=== PATIENT | male | born 1965 | race Caucasian/White ===

== ENCOUNTER 2018-12-16 10:17 | Emergency (ER) | payer BC ==
--- OUTSIDE RECORDS SUMMARY | 2018-12-16 10:20 | XMS REPORT | Clinical Summary ---
:1965 Author Organization [facility] Address [address] [place] [address] Care Team Providers Name Role Phone Abhishek Louis MD Primary Care Provider Allergies No Known Allergies Medications Medication Sig Dispensed Refills Start Date End Date Status lisinopril Take 10 mg by 0 Active (PRINIVIL,ZESTRIL) 10 MG mouth daily. tabletIndications: hypertension topiramate (TOPAMAX) 15 Take 15 mg by 0 Active MG capsule mouth daily. amLODIPine (NORVASC) 5 Take 5 mg by 0 Active MG tabletIndications: mouth daily. hypertension Active Problems Problem Noted Date Blurry vision 10/06/2016 Hypercholesterolemia 07/22/2015 Transient cerebral ischemia 07/21/2015 Overview: UPDATED BY ICD10 SNOMED/IMO UPDATES Hypertension 07/21/2015 Tobacco use 07/21/2015 Recurrent otitis media 07/21/2015 Social History Tobacco Use Types Packs/Day Years Used Date Never Smoker Alcohol Use Drinks/Week oz/Week Comments Yes Sex Assigned at Date Recorded Not on file Job Start Date Occupation Industry Not on file Not on file Not on file Travel History Travel Start Travel End No recent travel history available. Last Filed Vital Signs Not on file Plan of Treatment Not on file Results Not on fileafter 12/15/2017 Insurance Payer Benefit Plan / Subscriber ID Type Phone Address Group BLUE CROSS/BLUE BCBS OS xxxxxxxxxxxx PPO [phone] [address] [place] [place] [address] (Home) [address] [place] [place] [address] Advance Directives For more information, please contact:[address] [place], [place] [phone] Code Status Date Activated Date Inactivated Comments Full Code 10/06/2016 3:10 AM 10/07/2016 5:14 PM This code status was determined by: Patient Full Code 07/21/2015 5:25 PM 07/22/2015 5:56 PM This code status was determined by: Patient
--- OUTSIDE RECORDS SUMMARY | 2018-12-16 10:20 | XMS REPORT ---
:1965 [facility] Address [address] Ann [address] [place] [id number] Care Team Providers Name Role Phone MELECIO CURTIS Unavailable Unavailable Problems This patient has no known problems. Allergies, Adverse Reactions, Alerts This patient has no known allergies or adverse reactions. Medications This patient has no known medications. Results Test Description Test Time Test Comments Text Results Atomic Results Result Comments BASIC METABOLIC PANEL 2016-10-06 07:10:00 Test Item Value Reference Range Comments SODIUM (BEAKER) (test 135 meq/L 136-145 dwqv=791) POTASSIUM (BEAKER) (test 4.2 meq/L 3.5-5.1 dieb=656) CHLORIDE (BEAKER) (test 106 meq/L 98-107 irlr=241) CO2 (BEAKER) (test yuyf=777) 18 meq/L 22-29 BLOOD UREA NITROGEN (BEAKER) 17 mg/dL 7-21 (test nmew=044) CREATININE (BEAKER) (test 0.82 mg/dL 0.57-1.25 zddc=193) GLUCOSE RANDOM (BEAKER) 99 mg/dL 70-105 (test jjvh=664) CALCIUM (BEAKER) (test 8.4 mg/dL 8.4-10.2 lpbf=391) EGFR (BEAKER) (test 98 mL/min/1.73 sq m ESTIMATED GFR IS NOT sqox=5027) ACCURATE CREATININE CLEARANCE IN PREDICTING GLOMERULAR FILTRATION RATE. ESTIMATED GFR IS NOT APPLICABLE FOR DIALYSIS PATIENTS. FastingLIPID [id number] 07:06:00 Test Item Value Reference Range Comments TRIGLYCERIDES (BEAKER) (test kwar=397) 208 mg/dL CHOLESTEROL (BEAKER) (test uotn=193) 197 mg/dL HDL CHOLESTEROL (BEAKER) (test ezdp=551) 40 mg/dL LDL CHOLESTEROL CALCULATED (BEAKER) (test 115 mg/dL yqjj=919) Triglyceride Reference Range: Low Risk <150 Borderline 150- 199 High Risk 200-499 Very High Risk >=500Cholesterol Reference Range: Low Risk <200 Borderline 200-239 High Risk > 240HDL Cholesterol Reference Range: Low Risk >=60 High Risk <40LDL Cholesterol Reference Range: Optimal <100 Near Optimal 100-129 Borderline 130-159 High 160-189 Very High >=190 FastingCBC W/PLT COUNT & AUTO [id number] 05:36:00 Test Item Value Reference Range Comments WHITE BLOOD CELL COUNT (BEAKER) (test ytof=746) 5.9 K/ L 4.0-10.0 RED BLOOD CELL COUNT (BEAKER) (test ghbd=782) 4.42 M/ L 4.20-5.80 HEMOGLOBIN (BEAKER) (test wkdi=817) 14.6 GM/DL 13.0-16.8 HEMATOCRIT (BEAKER) (test odeq=108) 41.9 % 40.0-50.0 MEAN CORPUSCULAR VOLUME (BEAKER) (test zshq=934) 94.7 fL 82.0-98.0 MEAN CORPUSCULAR HEMOGLOBIN (BEAKER) (test 33.0 pg 27.0-33.0 ciog=358) MEAN CORPUSCULAR HEMOGLOBIN CONC (BEAKER) (test 34.9 GM/DL 32.0-36.0 yfhh=618) RED CELL DISTRIBUTION WIDTH (BEAKER) (test 11.4 % 10.3-14.2 coma=577) PLATELET COUNT (BEAKER) (test wrni=548) 231 K/CU MM 150-430 MEAN PLATELET VOLUME (BEAKER) (test kuvg=651) 6.9 fL 6.5-10.5 NUCLEATED RED BLOOD CELLS (BEAKER) (test 0 /100 WBC 0-0 uhaf=431) NEUTROPHILS RELATIVE PERCENT (BEAKER) (test 40 % dyfc=420) LYMPHOCYTES RELATIVE PERCENT (BEAKER) (test 41 % yznk=122) MONOCYTES RELATIVE PERCENT (BEAKER) (test 12 % gcny=577) EOSINOPHILS RELATIVE PERCENT (BEAKER) (test 7 % timx=089) BASOPHILS RELATIVE PERCENT (BEAKER) (test 1 % ogdg=154) NEUTROPHILS ABSOLUTE COUNT (BEAKER) (test 2.32 K/ L 1.80-8.00 itup=637) LYMPHOCYTES ABSOLUTE COUNT (BEAKER) (test 2.41 K/ L 1.48-4.50 jmyh=135) MONOCYTES ABSOLUTE COUNT (BEAKER) (test 0.72 K/ L 0.00-1.30 oqfp=888) EOSINOPHILS ABSOLUTE COUNT (BEAKER) (test 0.39 K/ L 0.00-0.50 mztq=423) BASOPHILS ABSOLUTE COUNT (BEAKER) (test 0.03 K/ L 0.00-0.20 nhax=143) 0.00
[2018-12-16 10:39] LABS: Absolute Lymphocytes (CBC) 2.1 K/uL (0.7-4.9); Basophils % 0.9 % (0-1.3); Eosinophils % 2.4 % (0-4.4); Hematocrit 52.6 % (39.6-49.0); MPV 8.3 fL (7.6-11.3); Monocytes % 10.4 % (3.3-12.3); RBC Red Blood Cell Count 5.53 M/uL (4.33-5.43)
[2018-12-16 10:40] LABS: Protime INR 0.95
[2018-12-16] MEDS ORDERED: NA CHLORIDE 0.9% 1,000 ML ONE (10:40)
--- NOTE | 2018-12-16 10:46 | RAD REPORT ---
EXAM DESCRIPTION: CT - Ct Stroke Brain Wo Cont - 12/16/2018 10:37 am CLINICAL HISTORY: Numbness COMPARISON: September 08, 2018 TECHNIQUE: Computed axial tomography of the head was obtained. All CT scans are performed using dose optimization technique as appropriate and may include automated exposure control or mA/KV adjustment according to patient size. FINDINGS: An intracranial bleed is not seen . The ventricles are normal in caliber. No extra-axial fluid collection is noted. Equivocal small low-density area right internal capsule Fluid within the sinuses/ mastoids is not seen. Chronic opacification right mastoids IMPRESSION: Equivocal small low-density right internal capsule questionable for an acute lacunar inf arct. MRI recommended Dr Merchant of the emergency room was notified at 10:37 a.m. December 16, 2018
[2018-12-16] MEDS ORDERED: FOLIC ACID 5 MG/ML VIAL ONE (10:54)
[2018-12-16 10:59] LABS: ALT/SGPT 28 U/L (12-78); AST/SGOT 18 U/L (15-37); Albumin 4.1 g/dL (3.4-5.0); Alkaline Phosphatase 60 U/L (45-117); BUN Blood Urea Nitrogen 13 mg/dL (7-18); Bicarbonate 28 mmol/L (21-32); Bilirubin Direct 0.2 mg/dL (0-0.2); Bilirubin Total 0.8 mg/dL (0.2-1.0); C-Reactive Protein < 2.90 mg/L (<3.00); Glucose Level 108 mg/dL (74-106); Magnesium 2.4 mg/dL (1.8-2.4); NT PRO-BNP 21 pg/mL (<125); Potassium 4.6 mmol/L (3.5-5.1); Protein, Total 7.5 g/dL (6.4-8.2); Sodium Level 139 mmol/L (136-145); Troponin (Emerg Dept Use Only) < 0.02 ng/mL (0.0-0.045)
[2018-12-16] MEDS ORDERED: ASPIRIN 81 MG CHEWABLE TABLET ONE (11:15)
[2018-12-16] MEDS ORDERED: LORazepam 2 MG/ML VIAL ONE (11:16)
--- NOTE | 2018-12-16 11:18 | RAD REPORT ---
EXAM DESCRIPTION: RAD - Chest Single View - 12/16/2018 11:01 am CLINICAL HISTORY: Cough, shortness of breath COMPARISON: September 2016 TECHNIQUE: AP portable chest image was obtained 1056 hours . FINDINGS: Lungs are clear. Heart and vasculature are normal. No measurable pleural effusion and no p neumothorax. No acute bony abnormality seen. No acute aortic findings suspected. IMPRESSION: No acute cardiopulmonary process. No significant change from comparison.
--- NOTE | 2018-12-16 12:09 | RAD REPORT ---
EXAM DESCRIPTION: US - CP - 12/16/2018 11:59 am CLINICAL HISTORY: Dizziness, syncope COMPARISON: August 2011 TECHNIQUE: Real-time sonographic evaluation of both carotid systems was performed. Avila scale and Do ppler interrogation were performed with waveform tracing bilaterally. FINDINGS: Normal high resistance waveforms are noted in both external carotid arteries. The common c arotid arteries and internal carotid arteries show normal low resistance waveforms. No significant plaquing changes in the bilateral common carotid or internal carotid arteries. No diss ection is seen. Peak systolic and end diastolic velocity values and the ICA/CCA ratios are in the non -hemodynamically significant range. Antegrade flow seen in both vertebral arteries. Velocity values and ratios were recorded and are retained in the patient's imaging records. IMPRESSION: No significant atherosclerotic changes noted. No evidence of a hemodynamically significant stenosis.
--- NOTE | 2018-12-16 12:29 | EKG ---
Test Date: 2018-12-16 Test Time: 10:26:24 Textile Designer: ANIL MEASUREMENT RESULTS: Intervals: Rate: 71 IN: 130 QRSD: 96 QT: 364 QTc: 395 [place]: P: 56 IN: 130 QRS: 58 T: 44 INTERPRETIVE STATEMENTS: Normal sinus rhythm Normal ECG Compared to ECG 08/24/2017 19:39:59 Sinus arrhythmia no longer present Electronically Signed On 12-16-18 12:28:26 CDT by Donte Vargas
--- NOTE | 2018-12-16 12:37 | RAD REPORT ---
EXAM DESCRIPTION: MRI - Brain Wo Cont - 12/16/2018 12:19 pm CLINICAL HISTORY: Numbness COMPARISON: Head CT December 16, 2018 TECHNIQUE: Axial, sagittal, and coronal magnetic images of the brain were obtained. Contrast was not requested FINDINGS: No significant abnormal signal is present within the brain. Diffusion-weighted/ADC mapping does not reveal evidence of acute infarction. The ventricles are normal caliber. An extra-axial fluid collection is not present Chronic opacification right mastoids IMPRESSION: No acute intracranial abnormality. Exam was discussed with Dr. Dietz in the emergency ro om 12:25 p.m. December 16, 2018
--- NOTE | 2018-12-16 12:50 | ER ---
Nurse's Notes [facility] Name: Austin Umanzor Age: 53 yrs Sex: Male : 1965 Arrival Date: 12/16/2018 Time: 10:19 Bed 6 Private MD: Diagnosis: Dizziness and giddiness;Vertigo of central origin, unspecified ear Presentation: 12/16 10:22 Presenting complaint: Patient states: Dizziness and numbness of face, lips and hand sg that started about 0900 this morning, reports shortness of breath after onset of symtpoms, pt reports a hx of TIA and CVA. Transition of care: patient was not received from another setting of care. 10:22 Method Of Arrival: Ambulatory sg 10:22 Acuity: DANIEL 2 sg 10:22 Onset of symptoms was December 16, 2018. Risk Assessment: Do you want to hurt yourself or sg someone else? Patient reports no desire to harm self or others. Initial Sepsis Screen: Does the patient meet any 2 criteria? No. Patient's initial sepsis screen is negative. Does the patient have a suspected source of infection? No. Patient's initial sepsis screen is negative. Care prior to arrival: None. Historical: - Allergies: 10:32 No Known Allergies; sg - PMHx: 10:32 Hypertension; TIA; sg - PSHx: 10:32 2 hernia repairs; multiple bone surgeries; sg - Immunization history:: Adult Immunizations up to date. - Social history:: Smoking status: Patient/guardian denies using tobacco. - Ebola Screening: : Patient negative for fever greater than or equal to 101.5 degrees Fahrenheit, and additional compatible Ebola Virus Disease symptoms Patient denies exposure to infectious person Patient denies travel to an Ebola-affected area in the 21 days before illness onset No symptoms or risks identified at this time. - Family history:: not pertinent. Screenin:28 Abuse screen: Denies threats or abuse. Denies injuries from another. Nutritional sg screening: No deficits noted. Tuberculosis screening: No symptoms or risk factors identified. Never had TB. VAN Screening: Arm Drift: Patient shows no arm weakness. Patient is VAN negative. Fall Risk None identified. Assessment: 10:30 Reassessment: A code stroke has been activated. sg 10:30 General: Appears in no apparent distress. well groomed, well developed, well nourished, sg Behavior is calm, cooperative, appropriate for age. Pain: Denies pain. Neuro: Level of Consciousness is awake, alert, obeys commands, Oriented to person, place, time, situation, Manager Business Intelligence are equal bilaterally Gait is steady, Speech is normal, Facial symmetry appears normal, Reports dizziness, numbness. Cardiovascular: Patient's skin is warm and dry. Chest pain is denied. Cardiovascular: Heart tones S1 S2 present. Respiratory: Airway is patent Respiratory effort is even, unlabored, Respiratory pattern is regular, symmetrical. GI: Abdomen is round non-distended. : No signs and/or symptoms were reported regarding the genitourinary system. EENT: No signs and/or symptoms were reported regarding the EENT system. Derm: Skin is pink, warm \T\ dry. Musculoskeletal: Circulation, motion, and sensation intact. Range of motion: intact in all extremities. 11:30 Reassessment: Patient appears in no apparent distress at this time. Patient and/or sg family updated on plan of care and expected duration. Pain level reassessed. Patient is alert, oriented x 3, equal unlabored respirations, skin warm/dry/pink. Patient denies pain at this time. Patient states feeling better. 13:30 Reassessment: Patient appears in no apparent distress at this time. Patient and/or sg family updated on plan of care and expected duration. Pain level reassessed. Patient is alert, oriented x 3, equal unlabored respirations, skin warm/dry/pink. awaiting new orders at this time, awaiting dispo Patient denies pain at this time. Patient states feeling better. Vital Signs: 10:28 BP 171 / 99; Pulse 72; Resp 18; Temp 98.9(O); Pulse Ox 100% on R/A; Weight 77.11 kg; hj Height 5 ft. 9 in. (175.26 cm); Pain 0/10; 10:28 Body Mass Index 25.10 (77.11 kg, 175.26 cm) NIH Stroke Scale Scores: 10:28 NIHSS Score: 1 sg 10:57 NIHSS Score: 0 [facility] ED Course: 10:19 Patient arrived in ED. as 10:19 Ruben Merchant MD is Attending Physician. [facility] 10:27 Krish Langston RN is Primary Nurse. sg 10:28 Initial lab(s) drawn, by me, sent to lab. Inserted saline lock: 22 gauge in right hj antecubital area, using aseptic technique. Blood collected. 10:29 Triage completed. sg 10:[address] sg 10:33 Arm band placed on. sg 10:44 EKG done, by psychology technician. reviewed by Ruben Merchant MD. dt2 10:56 X-ray completed. Portable x-ray completed in exam room. Patient tolerated procedure jb2 well. 11:00 Patient has correct armband on for positive identification. Bed in low position. Call sg light in reach. Side rails up X2. Pulse ox on. NIBP on. 11:32 Patient moved to MRI via wheelchair. em2 12:03 US Carotid Artery Bilateral In Process Unspecified. EDMS 12:14 Brain Wo Cont In Process Unspecified. EDMS 12:49 Edward Prince MD is Referral Physician. bryanna 13:10 No provider procedures requiring assistance completed. sg 13:16 IV discontinued, intact, bleeding controlled, No redness/swelling at site. Pressure sg dressing applied. Administered Medications: 10:36 Drug: NS 0.9% 1000 ml Route: IV; Rate: 1 bolus; Site: right antecubital; sg 10:41 Drug: foLIC Acid 1 mg Route: IVPB; Site: right antecubital; hj 11:04 Drug: Aspirin Chewable Tablet 324 mg Route: PO; hj 11:27 Follow up: Response: No adverse reaction sg 11:20 Drug: Ativan 1 mg Route: IVP; Site: right antecubital; sg 11:40 Follow up: Response: No adverse reaction; Anxiety unchanged sg 12:50 Drug: Ativan 1 mg Route: IVP; Site: right antecubital; sg 13:40 Follow up: Response: No adverse reaction; Anxiety decreased Point of Care Testing: Blood Glucose: 10:28 Blood Glucose: 113 mg/dL; Ranges: Outcome: 12:49 Discharge ordered by . bryanna 14:13 Discharged to home ambulatory, with family. hj 14:13 Condition: stable 14:13 Discharge instructions given to patient, family, Instructed on discharge instructions, follow up and referral plans. medication usage, Demonstrated understanding of instructions, follow-up care, medications, Prescriptions given X 1. 14:14 Patient left the ED. NIH Stroke Scale - NIH Stroke Score Date: 12/16/2018 Time: 10:28 Total Score = 1 1a. Level of Consciousness (LOC) - 0(Alert) 1b. Level of Consciousness (LOC) (Year \T\ Age) - 0(Both) 1c. LOC Commands (Open \T\ Closes Eyes/Electrotyper Apprentice) - 0(Both) 2. Best Gaze (Lateral Gaze Paresis) - 0(Normal) 3. Visual Field Loss - 0(No visual loss) 4. Facial Palsy - 0(Normal) 5a. Left Arm: Motor (10-second hold) - 0(No drift) 5b. Right Arm: Motor (10-second hold) - 0(No drift) 6a. Left Leg: Motor (5-second hold - always test supine) - 0(No drift) 6b. Right Leg: Motor (5-second hold - always test supine) - 0(No drift) 7. Limb Ataxia (finger/nose \T\ heel/canas - test with eyes open) - 0(Absent) 8. Sensory Loss (pinprick arms/legs/face) - 1(Mild to moderate loss) 9. Best Language: Aphasia (description/naming/reading) - 0(No aphasia) 10. Dysarthria (speech clarity - read or repeat words) - 0(Normal) 11. Extinction and Inattention (visual/tactile/auditory/spatial/personal) - 0(No abnormality) Initials: NIH Stroke Scale - NIH Stroke Score Date: 12/16/2018 Time: 10:57 Total Score = 0 1a. Level of Consciousness (LOC) - 0(Alert) 1b. Level of Consciousness (LOC) (Year \T\ Age) - 0(Both) 1c. LOC Commands (Open \T\ Closes Eyes/Electrotyper Apprentice) - 0(Both) 2. Best Gaze (Lateral Gaze Paresis) - 0(Normal) 3. Visual Field Loss - 0(No visual loss) 4. Facial Palsy - 0(Normal) 5a. Left Arm: Motor (10-second hold) - 0(No drift) 5b. Right Arm: Motor (10-second hold) - 0(No drift) 6a. Left Leg: Motor (5-second hold - always test supine) - 0(No drift) 6b. Right Leg: Motor (5-second hold - always test supine) - 0(No drift) 7. Limb Ataxia (finger/nose \T\ heel/canas - test with eyes open) - 0(Absent) 8. Sensory Loss (pinprick arms/legs/face) - 0(Normal) 9. Best Language: Aphasia (description/naming/reading) - 0(No aphasia) 10. Dysarthria (speech clarity - read or repeat words) - 0(Normal) 11. Extinction and Inattention (visual/tactile/auditory/spatial/personal) - 0(No abnormality) Initials: [facility] Signatures: Dispatcher [employer] EDKrish Alarcon RN RN sg Anderson, Corey, MD MD cha Buechter, Jesse jb2 Carmen Oneal Enrique em2 Dong Lombardo RN RN hj Teague, Danielle dt2 Corrections: (The following items were deleted from the chart) 10:37 10:28 BP 171 / 99; Pulse 72bpm; Resp 18bpm; Pulse Ox 100% RA; chan giles
--- NOTE | 2018-12-16 12:51 | EDPHYS ---
Physician Documentation [facility] Name: Austin Umanzor Age: 53 yrs Sex: Male : 1965 Arrival Date: 12/16/2018 Time: 10:19 Bed 6 Private MD: ED Physician Ruben Merchant HPI: 12/16 10:57 This 53 yrs old Male presents to ER via Ambulatory with complaints of bryanna Numbness Of Lips, Dizziness, Shortness Of Breath. 10:57 The patient presents with dizziness. Onset: The symptoms/episode began/occurred bryanna yesterday. Context: occurred at home. Modifying factors: The symptoms are alleviated by nothing, the symptoms are aggravated by nothing. Associated signs and symptoms: The patient has no apparent associated signs or symptoms. Severity of symptoms: At their worst the symptoms were mild moderate in the emergency department the symptoms have improved moderately. The patient has not experienced similar symptoms in the past. Historical: - Allergies: 10:32 No Known Allergies; sg - PMHx: 10:32 Hypertension; TIA; sg - PSHx: 10:32 2 hernia repairs; multiple bone surgeries; sg - Immunization history:: Adult Immunizations up to date. - Social history:: Smoking status: Patient/guardian denies using tobacco. - Ebola Screening: : Patient negative for fever greater than or equal to 101.5 degrees Fahrenheit, and additional compatible Ebola Virus Disease symptoms Patient denies exposure to infectious person Patient denies travel to an Ebola-affected area in the 21 days before illness onset No symptoms or risks identified at this time. - Family history:: not pertinent. ROS: 10:57 Constitutional: Negative for fever, chills, and weight loss, Eyes: Negative for injury, bryanna pain, redness, and discharge, ENT: Negative for injury, pain, and discharge, Neck: Negative for injury, pain, and swelling, Cardiovascular: Negative for chest pain, palpitations, and edema, Respiratory: Negative for shortness of breath, cough, wheezing, and pleuritic chest pain, Abdomen/GI: Negative for abdominal pain, nausea, vomiting, diarrhea, and constipation, Back: Negative for injury and pain, : Negative for injury, bleeding, discharge, and swelling, MS/Extremity: Negative for injury and deformity, Skin: Negative for injury, rash, and discoloration, Psych: Negative for depression, anxiety, suicide ideation, homicidal ideation, and hallucinations, Allergy/Immunology: Negative for hives, rash, and allergies, Endocrine: Negative for neck swelling, polydipsia, polyuria, polyphagia, and marked weight changes, Hematologic/Lymphatic: Negative for swollen nodes, abnormal bleeding, and unusual bruising. 10:57 Neuro: Positive for dizziness, weakness. Exam: 10:57 Constitutional: This is a well developed, well nourished patient who is awake, alert, bryanna and in no acute distress. Head/Face: Normocephalic, atraumatic. Eyes: Pupils equal round and reactive to light, extra-ocular motions intact. Lids and lashes normal. Conjunctiva and sclera are non-icteric and not injected. Cornea within normal limits. Periorbital areas with no swelling, redness, or edema. ENT: Nares patent. No nasal discharge, no septal abnormalities noted. Tympanic membranes are normal and external auditory canals are clear. Oropharynx with no redness, swelling, or masses, exudates, or evidence of obstruction, uvula midline. Mucous membranes moist. Neck: Trachea midline, no thyromegaly or masses palpated, and no cervical lymphadenopathy. Supple, full range of motion without nuchal rigidity, or vertebral point tenderness. No Meningismus. Chest/axilla: Normal chest wall appearance and motion. Nontender with no deformity. No lesions are appreciated. Cardiovascular: Regular rate and rhythm with a normal S1 and S2. No gallops, murmurs, or rubs. Normal PMI, no JVD. No pulse deficits. Respiratory: Lungs have equal breath sounds bilaterally, clear to auscultation and percussion. No rales, rhonchi or wheezes noted. No increased work of breathing, no retractions or nasal flaring. Abdomen/GI: Soft, non-tender, with normal bowel sounds. No distension or tympany. No guarding or rebound. No evidence of tenderness throughout. Back: No spinal tenderness. No costovertebral tenderness. Full range of motion. Male : Normal genitalia with no discharge or lesions. Skin: Warm, dry with normal turgor. Normal color with no rashes, no lesions, and no evidence of cellulitis. MS/ Extremity: Pulses equal, no cyanosis. Neurovascular intact. Full, normal range of motion. Neuro: Awake and alert, GCS 15, oriented to person, place, time, and situation. Cranial nerves II-XII grossly intact. Motor strength 5/5 in all extremities. Sensory grossly intact. Cerebellar exam normal. Normal gait. Psych: Awake, alert, with orientation to person, place and time. Behavior, mood, and affect are within normal limits. Vital Signs: 10:28 BP 171 / 99; Pulse 72; Resp 18; Temp 98.9(O); Pulse Ox 100% on R/A; Weight 77.11 kg; hj Height 5 ft. 9 in. (175.26 cm); Pain 0/10; 10:28 Body Mass Index 25.10 (77.11 kg, 175.26 cm) NIH Stroke Scale Scores: 10:28 NIHSS Score: 1 sg 10:57 NIHSS Score: 0 [facility] MDM: 10:19 Patient medically screened. [facility] 11:01 Data reviewed: vital signs, nurses notes, lab test result(s), EKG, radiologic studies, [facility] CT scan, doppler, MRI, plain films. 12/16 11:12 Order name: Urine Dipstick--Ancillary (enter results) [place] 12/16 11:13 Order name: Basic Metabolic Panel; Complete Time: 11:31 [facility] 12/16 11:13 Order name: Liver (Hepatic) Function; Complete Time: : [facility] 12/16 11:13 Order name: Troponin (Emerg Dept Use Only); Complete Time: : [facility] 12/16 11:13 Order name: NT PRO-BNP; Complete Time: 11:31 [facility] 12/16 10:21 Order name: XRAY Chest (1 view) [facility] 12/16 10:21 Order name: CT Head Brain wo Cont [facility] 12/16 10:25 Order name: US Carotid Artery Bilateral; Complete Time: 12:12 [facility] 12/16 11:13 Order name: C-Reactive Protein; Complete Time: 11:31 [facility] 12/16 11:14 Order name: Magnesium; Complete Time: : [facility] 12/16 11:15 Order name: Ct Stroke Brain Wo Cont; Complete Time: : [facility] 12/16 11:15 Order name: Chest Single View; Complete Time: 12:12 [facility] 12/16 11:23 Order name: CBC with Automated Diff [facility] 12/16 11:23 Order name: Sedimentation Rate, [place] [facility] 12/16 11:24 Order name: Protime (+INR) [facility] 12/16 11:24 Order name: Glucose, Ancillary Testing [facility] 12/16 11:58 Order name: Brain Wo Cont; Complete Time: 12:47 [facility] 12/16 10:21 Order name: EKG; Complete Time: 11:18 [facility] 12/16 10:21 Order name: Cardiac monitoring; Complete Time: 10:38 [facility] 12/16 10:21 Order name: EKG - Nurse/Tech; Complete Time: 10:38 [facility] 12/16 10:21 Order name: IV Saline Lock; Complete Time: 10:38 [facility] 12/16 10:21 Order name: Labs collected and sent; Complete Time: 10:38 [facility] 12/16 10:21 Order name: O2 Per Protocol; Complete Time: 10:38 [facility] 12/16 10:21 Order name: O2 Sat Monitoring; Complete Time: 10:39 [facility] Administered Medications: 10:36 Drug: NS 0.9% 1000 ml Route: IV; Rate: 1 bolus; Site: right antecubital; sg 10:41 Drug: foLIC Acid 1 mg Route: IVPB; Site: right antecubital; hj 11:04 Drug: Aspirin Chewable Tablet 324 mg Route: PO; hj 11:27 Follow up: Response: No adverse reaction sg 11:20 Drug: Ativan 1 mg Route: IVP; Site: right antecubital; sg 11:40 Follow up: Response: No adverse reaction; Anxiety unchanged sg 12:50 Drug: Ativan 1 mg Route: IVP; Site: right antecubital; sg 13:40 Follow up: Response: No adverse reaction; Anxiety decreased sg Point of Care Testing: Blood Glucose: 10:28 Blood Glucose: 113 mg/dL; hj Ranges: Critical Glucose Levels:Adult <50 mg/dl or >400 mg/dl <40 mg/dl or >180 mg/dl Disposition: 12/16/18 12:49 Discharged to Home. Impression: Dizziness and giddiness, Vertigo of central origin, unspecified ear. - Condition is Stable. - Discharge Instructions: Benign Positional Vertigo, Dizziness, Vertigo, Near-Syncope, [id number], Vertigo, [id number], Aspirin and Your Heart, Dizziness, [id number]-[id number]. - Prescriptions for Meclizine 25 mg Oral Tablet - take 1 tablet by ORAL route every 8 hours As needed; 30 tablet. - Work release form, Medication Reconciliation Form, Thank You Letter, Antibiotic Education, Prescription Opioid Use form. - Follow up: Private Physician; When: 2 - 3 days; Reason: Recheck today's complaints, Continuance of care, Re-evaluation by your physician. Follow up: Edward Prince MD; When: 2 - 3 days; Reason: Recheck today's complaints, Re-evaluation by your physician. - Problem is new. - Symptoms have improved. NIH Stroke Scale - NIH Stroke Score Date: 12/16/2018 Time: 10:28 Total Score = 1 1a. Level of Consciousness (LOC) - 0(Alert) 1b. Level of Consciousness (LOC) (Year \T\ Age) - 0(Both) 1c. LOC Commands (Open \T\ Closes Eyes/Hydrologic Engineer) - 0(Both) 2. Best Gaze (Lateral Gaze Paresis) - 0(Normal) 3. Visual Field Loss - 0(No visual loss) 4. Facial Palsy - 0(Normal) 5a. Left Arm: Motor (10-second hold) - 0(No drift) 5b. Right Arm: Motor (10-second hold) - 0(No drift) 6a. Left Leg: Motor (5-second hold - always test supine) - 0(No drift) 6b. Right Leg: Motor (5-second hold - always test supine) - 0(No drift) 7. Limb Ataxia (finger/nose \T\ heel/canas - test with eyes open) - 0(Absent) 8. Sensory Loss (pinprick arms/legs/face) - 1(Mild to moderate loss) 9. Best Language: Aphasia (description/naming/reading) - 0(No aphasia) 10. Dysarthria (speech clarity - read or repeat words) - 0(Normal) 11. Extinction and Inattention (visual/tactile/auditory/spatial/personal) - 0(No abnormality) Initials: NIH Stroke Scale - NIH Stroke Score Date: 12/16/2018 Time: 10:57 Total Score = 0 1a. Level of Consciousness (LOC) - 0(Alert) 1b. Level of Consciousness (LOC) (Year \T\ Age) - 0(Both) 1c. LOC Commands (Open \T\ Closes Eyes/Hydrologic Engineer) - 0(Both) 2. Best Gaze (Lateral Gaze Paresis) - 0(Normal) 3. Visual Field Loss - 0(No visual loss) 4. Facial Palsy - 0(Normal) 5a. Left Arm: Motor (10-second hold) - 0(No drift) 5b. Right Arm: Motor (10-second hold) - 0(No drift) 6a. Left Leg: Motor (5-second hold - always test supine) - 0(No drift) 6b. Right Leg: Motor (5-second hold - always test supine) - 0(No drift) 7. Limb Ataxia (finger/nose \T\ heel/canas - test with eyes open) - 0(Absent) 8. Sensory Loss (pinprick arms/legs/face) - 0(Normal) 9. Best Language: Aphasia (description/naming/reading) - 0(No aphasia) 10. Dysarthria (speech clarity - read or repeat words) - 0(Normal) 11. Extinction and Inattention (visual/tactile/auditory/spatial/personal) - 0(No abnormality) Initials: rbyanna Signatures: Dispatcher [employer] [facility] Krish Langston RN RN sg Anderson, Corey, MD MD cha Joaquin, Henry, RN RN hj Corrections: (The following items were deleted from the chart) 11:58 11:15 Stroke Protocol ordered. [facility] 12:03 11:19 MR STROKE PROTOCOL+MRI.RAD.BRZ ordered. [facility] 12:35 11:18 CBC+H.LAB.BRZ ordered. [facility] 12:37 11:18 PROTIME (+INR)+COAG.LAB.BRZ ordered. [facility] 12:37 11:18 [place] SEDRATE+H.LAB.BRZ ordered. [facility] 14:14 12:49 12/16/2018 12:49 Discharged to Home. Impression: Dizziness and giddiness; hj Vertigo of central origin, unspecified ear. Condition is Stable. Forms are Medication Reconciliation Form, Thank You Letter, Antibiotic Education, Prescription Opioid Use. Follow up: Private Physician; When: 2 - 3 days; Reason: Recheck today's complaints, Continuance of care, Re-evaluation by your physician. Follow up: Edward Prince; When: 2 - 3 days; Reason: Recheck today's complaints, Re-evaluation by your physician. Problem is new. Symptoms have improved. bryanna
[2018-12-16 15:10] LABS: Urine Blood NEGATIVE (NEG); Urine Glucose NEGATIVE (NEG); Urine Protein NEGATIVE (NEG)
[2018-12-16 15:47] VITALS: BP 171/99; TEMP 98.9; O2SAT 100
== END 2018-12-16 14:14 | disposition home or self-care (01) ==
LOC: ER 10:17
DX: H81.49 Vertigo of central origin, unspecified ear (principal); I10 Essential (primary) hypertension; Z86.73 Personal history of transient ischemic attack (TIA), and cerebral infarction without residual deficits
CPT/HCPCS: 36415; 70450; 70551; 71045; 80048; 80076; 81003; 82962; 83735; 83880; 84484; 85025; 85610; 85652; 86140; 93005; 93880; 96374; 96375; 99285; J7030

== ENCOUNTER 2023-02-24 09:49 | Emergency (ER) | payer OTHER ==
--- OUTSIDE RECORDS SUMMARY | 2023-02-24 09:54 | XMS REPORT | Continuity of Care Document ---
:1965 Author Organization [facility] t Address [address] [place] [address] Care Team Providers Name Role Phone Abhishek Louis MD Primary Care Physician [phone] NIK JOHN Attending Clinician Unavailable Nik Jean Attending Clinician Unknown, Attending Attending Clinician Unavailable Doctor Unassigned, [place] Attending Clinician Unavailable NENITA MALONE Attending Clinician Unavailable Nenita Malone MD Attending Clinician MELECIO CURTIS Attending Clinician Unavailable NENITA MALONE Admitting Clinician Unavailable MELECIO CURTIS Admitting Clinician Unavailable Payers Payer Name Policy Type Policy Number Effective Date Expiration Date [facility] [id number] 2022 PPO 00:00:00 BCBS [facility] [id number] 2020 OF [facility] 00:00:00 Problems Condition Condition Condition Status Onset Resolution Last Treating Co mments Source Name Details Category Date Date Treatment Clinician Date Blurry Blurry Disease Active [facility] Hyperchole Hyperchole Disease Active [facility] sterolemia sterolemia 2-12 Louise kes 00:00: Medical 00 Center Transient Transient Disease Active Overview: [facility] cerebral cerebral 2-11 Formattin Cain es ischemia ischemia 00:00: g of this Med ical 00 note Center might be different from the original. UPDATED BY ICD10 SNOMED/IM O UPDATES Hypertensi Hypertensi Disease Active [facility] on 07-21 [facility] 00:[facility]: Medical 00 [place] Tobacco Tobacco Disease Active [facility] use use 07-21 [facility]: [facility] 00 [place] Recurrent Recurrent Disease Active [facility] otitis otitis 07-21 [facility] media media 00:00: Medical 00 [place] Allergies, Adverse Reactions, Alerts Allergy Allergy Status Severity Reaction(s) Onset Inactive Treating Comm ents Source Name Type Date Date Clinician MORPHINE DRUG Active Other-Cmnt Univ ers INGREDI 02-28 ity of 00:00: [place] 00 Medical Branch Morphine Propensi Active Other - See U nivers ty to comments 02-28 ity of adverse 00:00: [place] reaction 00 Medical s Branch Social History Social Habit Start Date Stop Date Quantity Comments Source Gender identity [facility] to 2022-02-18 2022-02-28 Not sure University SARS-CoV-2 (event) 00:00:00 03:49:00 [facility] Alcohol intake 2016-10-06 2016-10-06 Current drinker [facility] 00:[facility]:00 00:00:00 of [facility] (finding) Sex Assigned At [birth year] [facility] 00:00:00 00:00:00 [facility] Smoking Status Start Date Stop Date Source Tobacco smoking consumption [facility] Medications Ordered Filled Start Stop Current Ordering Indication Dosage Frequency Signature Comments Components Source Medication Medication Date Date Medication? Clinician (SIG) Name Name amLODIPine Yes 5mg Take 1 Unive rs 5 mg tablet 6-21 tablet by ity of 00:00: mouth in [place] the Medical morning. Branch lisinopriL Yes 40mg Take 1 Unive rs 40 mg 6-21 tablet by ity of tablet 00:00: mouth in [place] 00 the Medical morning. Branch rosuvastati Yes 10mg Take 1 Univ ers n 10 mg 6-21 tablet by ity of tablet 00:00: mouth [place] 00 every Medical morning. Branch iopamidol No [id number] 75mL 75 mL, Univers (ISOVUE 02-28 Intravenou ity o f 370-500 mL) 12:15: 12:15 s, ONCE, 1 [place] injection 00 :00 dose, On Medica l 75 mL Wed Branch 02/28/22 at 0715, Routine FENTanyl PF 2021- No 50ug 50 mcg, Un satnam (SUBLIMAZE 02-28 Slow IV ity o f (PF)) 11:45: 11:28 Push, [place] injection 00 :00 ONCE, 1 Medical 50 mcg dose, On Branch Sat02/28/22 at 0645, STAT NaCl 0.9% No 1000mL at 999 Uni vers (NS) bolus 02-28 mL/hr, ity of infusion 11:45: 12:07 1,000 mL, [place] as 1,000 mL 00 :00 IV Medical Infusion, Branch ONCE, 1 dose, On Sat02/28/22 at 0645, STAT dexamethaso No 10mg 10 mg, Uni vers ne sod phos 02-28 Slow IV ity of PF 11:23: 11:45 Push, [place] injection 00 :00 ONCE, 1 Medical 10 mg dose, On Branch Sat02/28/22 at 0630, 1 mL FENTanyl PF No 75ug 75 mcg, Un satnam (SUBLIMAZE 02-28 Slow IV ity o f (PF)) 10:15: 09:16 Push, [place] injection 00 :00 ONCE, 1 Medical 75 mcg dose, On Branch Sat02/28/22 at 0515, Routine LORazepam 2021- No .5mg 0.5 mg, Univ ers (ATIVAN) 02-28 Slow IV ity of injection 09:55: 09:59 Push, [place] 0.5 mg 00 :00 ONCE, 1 Medical dose, On Branch Sat02/28/22 at 0500, STAT
Is the medication being used for status epilepticu s? No ketorolac 2021- No 30mg 30 mg, Unive rs (TORADOL) 02-28 Slow IV ity of injection 09:30: 09:19 Push, [place] 30 mg 00 :00 ONCE, 1 Medical dose, On Branch 02/28/22 at 0430, COSME ondansetron 2021-2021- No 4mg 4 mg, Slow Univers (ZOFRAN 02-28 IV Push, ity of (PF)) 09:30: 09:15 ONCE, 1 [place] injection 4 00 :00 dose, On Medi candido mg Wed Branch 02/28/22 at 0430, COSME traMADoL 50 Yes 4647 50mg Take 1 Univ ers mg tablet - tablet by ity o f 00:00: mouth [place] 00 every 6 Medical (six) Branch hours as needed for Pain (scale 4-6). Indication s: acute pain traMADoL 50 Yes 4647 50mg Take 1 Univ ers mg tablet - tablet by ity o f 00:00: mouth [place] 00 every 6 Medical (six) Branch hours as needed for Pain (scale 4-6). Indication s: acute pain traMADoL 50 Yes 4647 50mg Take 1 Univ ers mg tablet 02-28 tablet by ity o f 00:00: mouth [place] 00 every 6 Medical (six) Branch hours as needed for Pain (scale 4-6). Indication s: acute pain predniSONE 2021-2021- No [id number] 40mg Take 2 Univers 20 mg 02-28 tablets by ity of tablet 00:00: 04:59 mouth in [place] 00 :00 the Medical morning Branch for 5 days. lisinopril Yes hypertensio 10mg QD Take [address] (PRINIVIL,Z 4-30 n by mouth Luke s ESTRIL) 10 15:14: daily. Medic al MG tablet 55 Center topiramate Yes 15mg QD Take [address] (TOPAMAX) 4-30 by mouth [facility] 15 MG 15:14: daily. Medical capsule 55 Center amLODIPine Yes hypertensio 5mg QD Take [address] (NORVASC) 5 4-30 n by mouth Luke s MG tablet 15:14: daily. Medica l 55 Center lisinopril Yes hypertensio 10mg QD Take [address] (PRINIVIL,Z 4-30 n by mouth Luke s ESTRIL) 10 15:14: daily. Medic al MG tablet 55 Center topiramate 2017-0 Yes 15mg QD Take [address] (TOPAMAX) 4-30 by mouth [facility] 15 MG 15:14: daily. Medical capsule 55 Center amLODIPine 2017-0 Yes hypertensio 5mg QD Take [address] (NORVASC) 5 4-30 n by mouth Luke s MG tablet 15:14: daily. Medica l 55 Center Vital Signs Vital Name Observation Time Observation Value Comments Source Systolic blood 2022-12-21 18:13:00 170 mm[Hg] [facility] Diastolic blood 2022-12-21 18:13:00 83 mm[facility]Hg] [facility] rate 2022-12-21 18:11:00 61 /min [facility] Body temperature 2022-12-21 18:11:00 36.78 [facility] Respiratory rate 2022-12-21 18:11:00 16 /min General acute hospital Body height 2022-12-21 18:11:[address] [facility] Body weight 2022-12-21 18:11:[address] [facility] BMI 2022-12-21 18:11:00 26.15 kg/m2 [facility] Oxygen saturation in 2022-12-21 18:11:00 99 /min University of Arterial blood by [facility] Pulse oximetry Branch Systolic blood 2022-02-28 12:00:00 138 mm[Hg] Univer sity [facility] Diastolic blood 2022-02-28 12:00:00 88 mm[Hg] [facility] Heart rate 2022-02-28 12:00:00 62 /min [facility] Respiratory rate 2022-02-28 12:00:00 18 /min General acute hospital Oxygen saturation in 2022-02-28 12:00:00 96 /min University of Arterial blood by [facility] Pulse oximetry Branch Body temperature 2022-02-28 08:49:[address] [facility] height 2022-02-28 08:49:[address] [facility] Body weight 2022-02-28 08:49:[address] [facility] BMI 2022-02-28 08:49:00 25.84 kg/m2 [facility] Procedures Procedure Date / Time Performed Performing Clinician Sour e CONSENT/REFUSAL FOR 2022-12-21 18:04:28 Doctor Unassigned, No Un [facility] [place] DIAGNOSIS AND Name Medical Branch TREATMENT CT ABDOMEN PELVIS W 2022-02-28 11:23:55 Nenita Malone [facility] CONTRAST [facility] CT LUMBAR SPINE WO 2022-02-28 11:23:55 Nenita Malone [facility] CONTRAST [facility] URINALYSIS 2022-02-28 10:00:00 Chon Nenita [facility] COMP. METABOLIC PANEL 2022-02-28 09:11:00 Nenita Malone [facility] ([id number]) [facility] CBC WITH DIFF 2022-02-28 09:11:00 Nenita Malone [facility] NOTICE OF PRIVACY 2022-02-28 08:46:28 Doctor Unassigned, No Univ ersity [facility] PRACTICES Name [facility] Branch CONSENT/REFUSAL FOR 2022-02-28 08:45:27 Doctor Unassigned, No [facility] [place] DIAGNOSIS AND Name Medical [place] TREATMENT Encounters Start End Encounter Admission Attending Care Care Encounter Source Date/Time Date/Time Type Type Clinicians Facility Department ID 2022-12-21 2022-12-21 Outpatient R DORA DETHOM RUST [id number] Univers 13:00:00 15:10:16 NIK munson [facility] 2022-12-21 2022-12-21 Urgent Nik John RUST [id number] Univers 13:00:00 13:20:00 Care Unknown, Attending HEALTH [id number] jeimy [facility] [id number] [place] as AURORA?BLEA [id number] [place] [place] [address] MEDICAL OFFICE BUILDING 2022-12-21 2022-12-21 Orders Doctor MARTINEZ [id number] Univers 00:00:00 00:00:00 Only Unassigned, RUI [id number] ity of [place] [facility] 4.2.7.2.686 [facility] [id number] [facility] 009 Branch 2022-02-28 2022-02-28 Emergency X CHON RUST ERT [id number] Univers 04:06:00 07:19:00 NENITA [facility] 2022-02-28 2022-02-28 [facility] [id number] Univers 04:06:00 07:19:00 Nenita ZABALA [id number] i ty of [place] 4.2.7.2.686 [facility] [id number] [facility] 084 Branch Results Test Description Test Time Test Comments Results Result Comments Source COMP. METABOLIC PANEL (22464) 2022-02-28 10:01:12 Test Item Value Reference Range Interpretation Comme nts NA (test code = 5430577420) 138 mmol/L 135-145 K (test code = 5465577710) 4.6 mmol/L 3.5-5 CL (test code = 7371835483) 106 mmol/L 98-108 CO2 TOTAL (test code = 24 mmol/L 23-31 6639999911) AGAP (test code = 5377513526) 2-16 BUN (test code = 2398283546) 15 mg/dL 7-23 GLUCOSE (test code = 9373421528) 110 mg/dL 70-110 CREATININE (test code = 0.87 mg/dL 0.6-1.25 9616236112) TOTAL BILI (test code = 0.5 mg/dL 0.1-1.7 2161054772) CALCIUM (test code = 1004218246) 9.1 mg/dL 8.6-10.6 T PROTEIN (test code = 6.9 g/dL 6.3-8.2 5708331854) ALBUMIN (test code = 9700879100) 4.5 g/dL 3.5-5 ALK PHOS (test code = 5105389420) 61 U/L 34-122 ALTv (test code = 1742-6) 25 U/L 5-50 AST(SGOT) (test code = 25 U/L 13-40 2051947398) eGFR (test code = 5446614127) mL/min/1.73m2 EUN (test code = EUN) Association of Glomerular Filtration Rate (GFR) and Staging of Kidney Disease* + +--------- + ----+| GFR (mL/min/1.73 m2) ?| With Kidney Damage ?| ?Without Kidney Damage+ +--- + +| ?>90 ?| ?Stage one ?| ? Normal ?+ +-------- + -----+| ?60-89 ?| ?Stage two ?| ? Decreased GFR ? + +--------- + ----+| ?30-59 ?| ?Stage three ?| ? Stage three ? + +--------- + ----+| ?15-29 ?| ?Stage four ? | ? Stage four ?+ +-------- + -----+| ?<15 (or dialysis) ? ?| ?Stage five ? | ? Stage five ?+ +-------- + -----+ *Each stage assumes the associated GFR level has been in effect for at least three months. ?Stages 1 to 5, with or without kidney disease, indicate chronic kidney disease. Notes: Determination of stages one and two (with eGFR >59mL/min/1.73 m2) requires estimation of kidney damage for at least three months as defined by structural or functional abnormalities of the kidney, manifested by either:Pathological abnormalities or Markers of kidney damage (including abnormalities in the composition of the blood or urine or abnormalities in imaging tests). [facility] WITH [id number] 09:24:25 Test Item Value Reference Range Interpretation Comments WBC (test code = See_Comment [Automated 1662-2) message] The sy stem which generated this result transmitted reference range : 4.20 - 10.70 10*3/?L. The reference range was not used to interpret this result as normal/abnormal . RBC (test code = See_Comment [Automated 270-7) message] The sy stem which generated this result transmitted reference range : 4.26 - 5.52 10*6/?L. The reference range was not used to interpret this result as normal/abnormal . HGB (test code = 15.8 g/dL 12.2-16.4 718-7) HCT (test code = 45.3 % 38.4-49.3 4544-3) MCV (test code = 92.6 fL 81.7-95.6 787-2) MCH (test code = 32.3 pg 26.1-32.7 785-6) MCHC (test code = 34.9 g/dL 31.2-35 786-4) RDW-SD (test code = 41.0 fL 38.5-51.6 65619-2) RDW-CV (test code = 12.2 % 12.1-15.4 788-0) PLT (test code = See_Comment [Automated 777-3) message] The sy stem which generated this result transmitted reference range : 150 - 328 10*3/ ?L. The reference r dylan was not used to interpret this result as normal/abnormal . MPV (test code = 9.2 fL 9.8-13 L 75419-6) NRBC/100 WBC (test See_Comment [Automat ed code = 0723866132) message] The system which generated this result transmitted reference range : 0.0 - 10.0 /100 WBCs. The refer ence range was not u sed to interpret th is result as normal/abnormal . NRBC x10^3 (test code See_Comment [Auto mated = 9540081695) message] The s ystem which generated this result transmitted reference range : 10*3/?L. The reference range was not used to interpret this result as normal/abnormal . GRAN MAT (NEUT) % 40.0 % (test code = 770-8) IMM GRAN % (test code 0.80 % = 3176519488) LYMPH % (test code = 39.6 % 736-9) MONO % (test code = 11.1 % 5905-5) EOS % (test code = 8.0 % 713-8) BASO % (test code = 0.5 % 706-2) GRAN MAT x10^3(ANC) 2.67 10*3/uL 1.99-6.95 (test code = 0593878997) IMM GRAN x10^3 (test 0.05 10*3/uL 0-0.06 code = 6538804968) LYMPH x10^3 (test code 2.64 10*3/uL 1.09-3.23 = 731-0) MONO x10^3 (test code 0.74 10*3/uL 0.36-1.02 = 742-7) EOS x10^3 (test code = 0.53 10*3/uL 0.06-0.53 711-2) BASO x10^3 (test code 0.03 10*3/uL 0.01-0.09 = 704-7) Lab Interpretation Abnormal (test code = 70437-2) [facility] METABOLIC [id number] 07:10:00 Test Item Value Reference Range Interpretation Comments SODIUM (BEAKER) 135 meq/L 136-145 L (test code = 381) POTASSIUM (BEAKER) 4.2 meq/L 3.5-5.1 (test code = 379) CHLORIDE (BEAKER) 106 meq/L 98-107 (test code = 382) CO2 (BEAKER) (test 18 meq/L 22-29 L code = 355) BLOOD UREA NITROGEN 17 mg/dL 7-21 (BEAKER) (test code = 354) CREATININE (BEAKER) 0.82 mg/dL 0.57-1.25 (test code = 358) GLUCOSE RANDOM 99 mg/dL 70-105 (BEAKER) (test code = 652) CALCIUM (BEAKER) 8.4 mg/dL 8.4-10.2 (test code = 697) EGFR (BEAKER) (test 98 mL/min/1.73 ESTIMA MARY GFR IS code = 1092) sq m NOT ACCURATE CREATININE CLEARANCE IN PREDICTING GLOMERULAR FILTRATION RATE . ESTIMATED GFR I S NOT APPLICABLE FOR DIALYSIS PATIEN TS. FastingLIPID [id number] 07:06:00 Test Item Value Reference Range Interpretation Comments TRIGLYCERIDES (BEAKER) (test code = 208 mg/dL 540) CHOLESTEROL (BEAKER) (test code = 197 mg/dL 631) HDL CHOLESTEROL (BEAKER) (test code 40 mg/dL = 976) LDL CHOLESTEROL CALCULATED (BEAKER) 115 mg/dL (test code = 633) Triglyceride Reference Range: Low Risk <150 Borderline 150-199 High Risk 200- 499 Very High Risk >=500Cholesterol Reference Range: Low Risk <200 Borderline 200-239 High Risk >240HDL Cholesterol Reference Range: Low Risk >=60 High Risk <40LDL Cholesterol Reference Range: Optimal <100 Near Optimal 100-129 Borderline 130-159 High 160-189 Very High >=190 FastingCBC W/PLT COUNT & AUTO [id number] 05:36:00 Test Item Value Reference Range Interpretation Comments WHITE BLOOD CELL COUNT (BEAKER) 5.9 K/ L 4.0-10.0 (test code = 775) RED BLOOD CELL COUNT (BEAKER) 4.42 M/ L 4.20-5.80 (test code = 761) HEMOGLOBIN (BEAKER) (test code = 14.6 GM/DL 13.0-16.8 410) HEMATOCRIT (BEAKER) (test code = 41.9 % 40.0-50.0 411) MEAN CORPUSCULAR VOLUME (BEAKER) 94.7 fL 82.0-98.0 (test code = 753) MEAN CORPUSCULAR HEMOGLOBIN 33.0 pg 27.0-33.0 (BEAKER) (test code = 751) MEAN CORPUSCULAR HEMOGLOBIN CONC 34.9 GM/DL 32.0-36.0 (BEAKER) (test code = 752) RED CELL DISTRIBUTION WIDTH 11.4 % 10.3-14.2 (BEAKER) (test code = 412) PLATELET COUNT (BEAKER) (test 231 K/CU MM 150-430 code = 756) MEAN PLATELET VOLUME (BEAKER) 6.9 fL 6.5-10.5 (test code = 754) NUCLEATED RED BLOOD CELLS 0 /100 WBC 0-0 (BEAKER) (test code = 413) NEUTROPHILS RELATIVE PERCENT 40 % (BEAKER) (test code = 429) LYMPHOCYTES RELATIVE PERCENT 41 % (BEAKER) (test code = 430) MONOCYTES RELATIVE PERCENT 12 % (BEAKER) (test code = 431) EOSINOPHILS RELATIVE PERCENT 7 % (BEAKER) (test code = 432) BASOPHILS RELATIVE PERCENT 1 % (BEAKER) (test code = 437) NEUTROPHILS ABSOLUTE COUNT 2.32 K/ L 1.80-8.00 (BEAKER) (test code = 670) LYMPHOCYTES ABSOLUTE COUNT 2.41 K/ L 1.48-4.50 (BEAKER) (test code = 414) MONOCYTES ABSOLUTE COUNT (BEAKER) 0.72 K/ L 0.00-1.30 (test code = 415) EOSINOPHILS ABSOLUTE COUNT 0.39 K/ L 0.00-0.50 (BEAKER) (test code = 416) BASOPHILS ABSOLUTE COUNT (BEAKER) 0.03 K/ L 0.00-0.20 (test code = 417) 0.00"
[2023-02-24] MEDS ORDERED: predniSONE 20 MG TAB ONE (10:30)
--- NOTE | 2023-02-24 11:32 | RAD REPORT ---
EXAM DESCRIPTION: Shoulder Right 2 View - 02/24/2023 10:33 am CLINICAL HISTORY: PAIN COMPARISON: Chest Single View dated 12/16/2018; Chest Abd Pelvis Wo Con dated 08/24/2017 TECHNIQUE: Internal and external rotation views of the right shoulder were obtained. FINDINGS: There is no fracture or dislocation. AC joint mild degenerative changes. No acute or suspi cious findings. Radiodensities along the margins of the glenoid, indeterminate, but could relate to p ostsurgical changes of resurfacing. IMPRESSION: No acute osseous abnormality. Findings as above.
--- NOTE | 2023-02-24 11:34 | EDPHYS ---
Physician Documentation [facility] Name: Austin Umanzor Age: 57 yrs Sex: Male : 1965 Arrival Date: 02/24/2023 Time: 09:49 Bed 6 Private MD: ED Physician K[address] Street HPI: 02/24 10:14 This 57 yrs old Male presents to ER via Ambulatory with complaints of Numbness Of Arm - kb right. 10:14 The patient has not recently seen a physician. kb 10:14 The patient or guardian complains of pain, that is acute, tenderness. right shoulder. kb Context: The problem was sustained at work, resulted from trying to loosen something on a pipe, The patient reports no decreased range of motion. The patient reports no obvious deformity. Onset: The symptoms/episode began/occurred 11 day(s) ago. Modifying factors: the symptoms are alleviated by nothing. The symptoms are aggravated by movement, rotation of arm. Associated signs and symptoms: Pertinent positives: Numbness in right arm. Severity of symptoms: At their worst the symptoms were moderate, in the emergency department the symptoms are unchanged. Treatment prior to arrival includes: no previous treatment. The patient has not experienced similar symptoms in the past. Pt reports he injured his shoulder at work on 02/13/23. States he made an appt with his PCP for the , but yesterday he woke up with numbness to right arm. States arm is tingling today, but numbness has resolved. . Historical: - Allergies: 10:04 Morphine; ss - Home Meds: 10:04 Lisinopril [Active]; amlodipine oral [Active]; high cholesterol [Active]; ss - PMHx: 10:04 Hypertension; TIA; ss - Immunization history:: Client reports receiving the 2nd dose of the Covid vaccine. - Social history:: Smoking status: Patient denies any tobacco usage or history of. ROS: 10:13 Constitutional: Negative for fever, chills, and weight loss. kb 10:13 MS/extremity: Positive for pain, tenderness, tingling, of the posterior aspect of right shoulder. 10:13 All other systems are negative. Exam: 10:13 Constitutional: This is a well developed, well nourished patient who is awake, alert, kb and in no acute distress. Head/Face: Normocephalic, atraumatic. ENT: Moist Mucous membranes Cardiovascular: Regular rate Respiratory: Respirations even and unlabored. No increased work of breathing. Talking in full sentences Skin: Warm, dry with normal turgor. Normal color. Neuro: Awake and alert, GCS 15, oriented to person, place, time, and situation. Moves all extremities. Normal gait. 10:13 Musculoskeletal/extremity: Extremities: grossly normal except: noted in the posterior aspect of right shoulder: pain, tenderness, ROM: limited active range of motion due to pain, Circulation is intact in all extremities. Sensation intact. Vital Signs: 10:00 BP 179 / 101; Pulse 74; Resp 18; Temp 97.6(TE); Pulse Ox 100% on R/A; Weight 79.38 kg; ss Height 5 ft. 7 in. ; Pain 8/10; 10:30 BP 165 / 95; Pulse 70; Resp 17; Pulse Ox 99% on R/A; rs5 11:40 BP 168 / 98; Pulse 72; Resp 18; Pulse Ox 99% ; ko1 10:00 Body Mass Index 27.41 (79.38 kg, 170.18 cm) ss 10:00 Pain Scale: Adult ss MDM: 10:07 Patient medically screened. kb 11:33 Data reviewed: vital signs, nurses notes. kb 02/24 10:10 Order name: Shoulder Right (2 View) XRAY; Complete Time: 11:33 kb Administered Medications: 10:11 CANCELLED (Patient Refused): Dexamethasone IM 10 mg IM once kb 10:21 Drug: predniSONE PO 40 mg Route: PO; rs5 10:54 Follow up: Response: No adverse reaction rs5 Disposition Summary: 02/24/23 11:33 Discharge Ordered Location: Home kb Condition: Stable kb Diagnosis - Radiculopathy, cervical region kb - Pain in right shoulder kb Followup: kb - With: Emergency Department - When: As needed - Reason: Worsening of condition Followup: kb - With: Private Physician - When: 2 - 3 days - Reason: Recheck today's complaints, Continuance of care, Re-evaluation by your physician Discharge Instructions: - Discharge Summary Sheet kb - Shoulder Pain, [id number] kb - Cervical Radiculopathy, [id number] kb Forms: - Medication Reconciliation Form kb - Thank You Letter kb - Antibiotic Education kb - Prescription Opioid Use kb - Patient Portal Instructions kb - Leadership Thank You Letter kb - Work release form ko1 Prescriptions: - Prednisone 20 mg Oral Tablet - take 1 tablet by ORAL route once daily for 5 days; 5 tablet; Refills: 0, kb Product Selection Permitted - orphenadrine citrate 100 mg Oral Tablet Sustained Release - take 1 tablet by ORAL route 2 times per day As needed; 20 tablet; Refills: 0, kb Product Selection Permitted Signatures: Dispatcher [employer] EDElissa Anderson, NURA-C ROPE MAKING MACHINE OPERATOR-Chante Campos, RN RN ss Roberto Carlos Shi, RN RN rs5 Corrections: (The following items were deleted from the chart) 10:11 10:10 Dexamethasone IM 10 mg IM once ordered. kb kb
--- NOTE | 2023-02-24 11:34 | ER ---
Nurse's Notes [facility] Name: Austin Umanzor Age: 57 yrs Sex: Male : 1965 Arrival Date: 02/24/2023 Time: 09:49 Bed 6 Private MD: Diagnosis: Radiculopathy, cervical region;Pain in right shoulder Presentation: 02/24 10:00 Chief complaint: Patient states: R shoulder injury that occurred on February 13. Pt ss reports that he woke up at 0600 yesterday morning and is having numbness to that arm. NIHSS negative. Pt states, "I heard a pop and now there is a little lump on my arm.". Coronavirus screen: Client denies travel out of the [place] in the last 14 days. Ebola Screen: Patient denies exposure to infectious person. Patient denies travel to an Ebola-affected area in the 21 days before illness onset. Initial Sepsis Screen: Does the patient meet any 2 criteria? No. Patient's initial sepsis screen is negative. Does the patient have a suspected source of infection? No. Patient's initial sepsis screen is negative. Risk Assessment: Do you want to hurt yourself or someone else? Patient reports no desire to harm self or others. Onset of symptoms was February 23, 2023. 10:00 Method Of Arrival: Ambulatory ss 10:00 Acuity: DANIEL 3 ss Historical: - Allergies: 10:04 Morphine; ss - Home Meds: 10:04 Lisinopril [Active]; amlodipine oral [Active]; high cholesterol [Active]; ss - PMHx: 10:04 Hypertension; TIA; ss - Immunization history:: Client reports receiving the 2nd dose of the Covid vaccine. - Social history:: Smoking status: Patient denies any tobacco usage or history of. Screenin:40 [facility] ED Fall Risk Assessment (Adult) History of falling in the last 3 months, ko1 including since admission No falls in past 3 months (0 pts) Confusion or Disorientation No (0 pts) Intoxicated or Sedated No (0 pts) Impaired Gait No (0 pts) Mobility Assist Device Used No (0 pt) Altered Elimination No (0 pt) Score/Fall Risk Level 0 - 2 = Low Risk Oriented to surroundings, Maintained a safe environment, Educated pt \\T\\ family on fall prevention, incl call for assistance when getting out of bed, Assessed \\T\\ reinforced patient's understanding of fall precautions, Provided non-skid footwear, Hourly rounding (assess needs \\T\\ fall precautionary measures) done, Used ambulatory aids as needed (educated on \\T\\ assisted with), Used gait belt as appropriate. Abuse screen: Denies threats or abuse. Denies injuries from another. Nutritional screening: No deficits noted. Tuberculosis screening: No symptoms or risk factors identified. Assessment: 10:10 Pain: Complains of pain in right shoulder Pain does not radiate. Pain currently is 2 rs5 out of 10 on a pain scale. at worst was 8 out of 10 on a pain scale. Quality of pain is described as aching, tender, Pain began one week ago Is intermittent, Alleviated by cold application, Aggravated by repositioning, Noted to be grimacing. 10:15 General: Appears in no apparent distress. comfortable, Behavior is calm, cooperative. rs5 10:15 Neuro: Level of Consciousness is awake, alert, obeys commands, Oriented to person, rs5 place, time, situation. Cardiovascular: Rhythm is regular. Cardiovascular: Heart tones S1 S2. Respiratory: Airway is patent Respiratory effort is even, unlabored, Respiratory pattern is regular, symmetrical. Respiratory: Breath sounds are clear bilaterally. GI: Abdomen is round non-distended. : No signs and/or symptoms were reported regarding the genitourinary system. EENT: No signs and/or symptoms were reported regarding the EENT system. Derm: Skin is pink, warm \\T\\ dry. Musculoskeletal: Range of motion: limited in right shoulder. 10:45 Reassessment: No changes from previously documented assessment. rs5 11:15 Reassessment: Patient and/or family updated on plan of care and expected duration. Pain rs5 level reassessed. Patient is alert, oriented x 3, equal unlabored respirations, skin warm/dry/pink. Vital Signs: 10:00 BP 179 / 101; Pulse 74; Resp 18; Temp 97.6(TE); Pulse Ox 100% on R/A; Weight 79.38 kg; ss Height 5 ft. 7 in. ; Pain 8/10; 10:30 BP 165 / 95; Pulse 70; Resp 17; Pulse Ox 99% on R/A; rs5 11:40 BP 168 / 98; Pulse 72; Resp 18; Pulse Ox 99% ; ko1 10:00 Body Mass Index 27.41 (79.38 kg, 170.18 cm) ss 10:00 Pain Scale: Adult ss ED Course: 09:52 Patient arrived in ED. im 10:03 Triage completed. ss 10:04 Arm band placed on right wrist. ss 10:06 Elisas Shah F[facility]-C is [facility]. kb 10:[address] is Attending Physician. kb 10:17 Qing Howard, RN is Primary Nurse. ko1 10:34 Shoulder Right (2 View) XRAY In Process Unspecified. EDMS 11:40 Patient has correct armband on for positive identification. Bed in low position. Call ko1 light in reach. Provided Education on: na. 11:40 No provider procedures requiring assistance completed. Patient did not have IV access ko1 during this emergency room visit. Administered Medications: 10:11 CANCELLED (Patient Refused): Dexamethasone IM 10 mg IM once kb 10:21 Drug: predniSONE PO 40 mg Route: PO; rs5 10:54 Follow up: Response: No adverse reaction rs5 Medication: 11:40 VIS not applicable for this client. ko1 Outcome: 11:33 Discharge ordered by MD. kb 11:40 Discharged to home ambulatory. ko1 11:40 Condition: good 11:40 Discharge instructions given to patient, Instructed on discharge instructions, follow up and referral plans. medication usage, Demonstrated understanding of instructions, follow-up care, medications, Prescriptions given X 2. 11:41 Patient left the ED. ko1 Signatures: Dispatcher [employer] [facility] Elissa Shah FNP-C FNP-Chante Campos RN RN Qing Howard, RN RN ko1 Roberto Carlos Shi, RN RN rs5 Neetu Bautista im
[2023-02-24 11:46] VITALS: TEMP 97.6
[2023-02-24 11:48] VITALS: BP 168/98; O2SAT 99
== END 2023-02-24 11:41 | disposition home or self-care (01) ==
LOC: ER 09:49
DX: M54.12 Radiculopathy, cervical region (principal); I10 Essential (primary) hypertension; Z88.5 Allergy status to narcotic agent
CPT/HCPCS: 73030; 99283; J7512